=== PATIENT | male | born 1985 | race Caucasian/White ===

== ENCOUNTER 2022-09-06 15:09 | Outpatient (CLI) | payer OTHER, SELFPAY ==
[2022-09-06 18:10] LABS: Chloride* 101 mmol/L (96-114); Potassium* 4.6 mmol/L (3.6-5.1); Sodium* 139 mmol/L (135-149)
[2022-09-06 18:13] LABS: Blood Urea Nitrogen* 13 mg/dL (5-24); Carbon Dioxide* 32 mmol/L (20-32); Cholesterol* 176 mg/dL (90-199); Creatinine* 0.8 mg/dL (0.5-1.5); Estimated Glomerular Filt Rate 118 ml/min
[2022-09-06 18:14] LABS: Calcium* 9.8 mg/dL (8.4-10.6); Glucose* 66 mg/dL (60-115); HDL Cholesterol* 69 mg/dL (>=40); LDL Cholesterol Calculated 96 mg/dL (<100); Triglycerides* 54 mg/dL (40-149)
== END 2022-09-06 15:10 | disposition home or self-care (01) ==
PROVIDERS: PCP Family Medicine; Visit Provider Family Medicine
DX: Z00.00 Encounter for general adult medical examination without abnormal findings (principal); Z13.6 Encounter for screening for cardiovascular disorders
CPT/HCPCS: 80048; 80061

== ENCOUNTER 2023-11-26 08:30 | Outpatient (CLI) | payer OTHER, SELFPAY | END 2023-11-26 08:31 | disposition home or self-care (01) | PROVIDERS: PCP Family Medicine; Referring Provider Family Medicine; Visit Provider Family Medicine | DX: Z00.00 Encounter for general adult medical examination without abnormal findings (principal); Z13.1 Encounter for screening for diabetes mellitus; Z13.6 Encounter for screening for cardiovascular disorders | CPT/HCPCS: 80061; 82947 ==

== ENCOUNTER 2024-05-28 23:49 | Emergency (ER) | payer OTHER, SELFPAY ==
[2024-05-28 23:54] VITALS: BP 124/74; PULSE 85; RESP 16; TEMP 37.5; O2SAT 97
[2024-05-29] VITALS: BP 121/97; PULSE 80; RESP 16; TEMP 37.5; O2SAT 97; BMI 21.8
--- NOTE | 2024-05-29 | ED_ITS ---
HPI - General Adult General Chief complaint: Fever Stated complaint: Fever, headache Time Seen by Provider: 05/28/24 23:55 History of Present Illness HPI narrative: Headache, chills, fever started today. 101.6 at home, 1500 took 200mg ibuprofen and another 200 at 2300. no tylenol. 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 states coworkers had covid a couple weeks ago. 5 days ago working with closely with goats that had rhinorrhea which he thought was probably related to them being in a colder location. Some of them also demonstrated a rash he suspects to be fungal. He was just working with them more closely than usual trying to investigate what was going on. With further conversation it is apparent that his concern is potentially being exposed to kenna influenza. No known contact with kenna influenza specifically. Today began to feel chilled and measured a fever today at 101.6. He is concerned also as his partner is returning to town and he is worried about exposing her to illness. No vomiting or diarrhea. Also has a headache. No rash. He did have some left-sided chest discomfort which is somewhat reproducible per his description. Describes some vigorous motion in his work but primarily with the right side/arm. Related Data Home Medications ?Medication ?Instructions ?Recorded ?Confirmed No Known Home Medications 09/06/22 12/02/23 Allergies Allergy/AdvReac Type Severity Reaction Status Date / Time No Known Drug Allergies Allergy Verified 12/02/23 07:59 Review of Systems Status of ROS: Reports: 6 or more systems reviewed and unremarkable except as noted in History and below [facility] Medical History No significant past medical history Surgical History History of nasal septoplasty ?Z98.890 - Other specified postprocedural states (ICD-10) Family History (Updated 10/08/22 @ 15:57 by Neela Aleman) Father High blood pressure Paternal Grandfather High blood pressure Social History Narrative: , no kids, [employer] and [place], nonsmoker, social ETOH, THC What is your current living situation?: I presently have a place to live Problems where you live: mold In the past 12 months, utilities in danger of being shut off: no In past 12 months, lack of transportation kept you from medical appts, meetings, work, or getting things needed for daily living: no In the past 12 mos, have been you worried that your food would run out before you had money to buy more?: never true In the past 12 mos, the food you bought just didn't last and you didn't have money to buy more?: never true Smoking Status: Never smoker Second hand tobacco smoke exposure: No How often do you have a drink containing alcohol: never AUDIT-C Alcohol total score: 0 Non-prescribed substance use: denies use How often does anyone, including family, friends and others, physically hurt you : never How often does anyone, including family, friends and others, insult or talk down to you: never How often does anyone, including family, friends and others, threaten you with harm: never How often does anyone, including family, friends and others, scream or curse at you: never Little interest or pleasure in doing things: several days Feeling down, depressed, or hopeless: several days Exam Narrative: Exam Narrative: Pleasant. NAD. Breathing easily. Lungs appear to be clear. Oropharynx is moist and without erythema. Neck is supple without lymphadenopathy. He is bearded. Heart in regular rate and rhythm without murmur rub or gallop. Abdomen is flat and soft. Extremities are well perfused without edema. Skin is warm and dry without rash. Is a little sore to palpation in the left pectoralis musculature. Const: Vital Signs, click to edit/add: Vital Signs - 24 hr 05/28/24 23:54 05/29/24 00:00 05/29/24 03:17 Temperature 99.5 F 99.5 F 98.7 F Pulse Rate [Pulse Oximeter] 80 74 Pulse Rate [Right Pulse Oximeter] 85 Respiratory Rate 16 16 16 Blood Pressure [Le ft Arm] 124/74 Blood Pressure [Ri ght Upper Arm] 121/97 H 114/74 Pulse Oximetry 97 97 97 Oxygen Delivery Me thod Room Air Room Air Room Air 05/29/24 03:18 Temperature 98.7 F Pulse Rate [Pulse Oximeter] 74 Pulse Rate [Right Pulse Oximeter] Respiratory Rate 16 Blood Pressure [Le ft Arm] Blood Pressure [Ri ght Upper Arm] 114/74 Pulse Oximetry Oxygen Delivery Me thod Documenting provider has reviewed patient's vital signs: yes Course Vital Signs Vital signs: Initial Vital Signs Temperature 99.5 F 05/28/24 23:54 Temperature Source Temporal Artery Scan 05/28/24 23:54 Pulse Rate 85 05/28/24 23:54 Respiratory Rate 16 05/28/24 23:54 Respiratory Effort Normal, Spontaneous, Non-Labored 05/28/24 23:54 Respiratory Depth Normal 05/28/24 23:54 Respiratory Pattern Normal 05/28/24 23:54 Blood Pressure 124/74 05/28/24 23:54 Blood Pressure Mean 90 05/28/24 23:54 Blood Pressure Position Sitting 05/28/24 23:54 Pulse Oximetry 97 05/28/24 23:54 Oxygen Delivery Method Room Air 05/28/24 23:54 Sepsis Recent Fever Within 48 Hours No 05/28/24 23:54 Sepsis New/Unexplained Change in Mental Status No 05/28/24 23:54 Sepsis Action Taken by Nursing No Action Required 05/28/24 23:54 Vital Signs Temperature 99.5 F 05/28/24 23:54 Pulse Rate 85 05/28/24 23:54 Respiratory Rate 16 05/28/24 23:54 Blood Pressure 124/74 05/28/24 23:54 Pulse Oximetry 97 05/28/24 23:54 Oxygen Delivery Method Room Air 05/28/24 23:54 Temperature 98.7 F 05/29/24 03:18 Pulse Rate 74 05/29/24 03:18 Respiratory Rate 16 05/29/24 03:18 Blood Pressure 114/74 05/29/24 03:18 Pulse Oximetry 97 05/29/24 03:17 Oxygen Delivery Method Room Air 05/29/24 03:17 Medical Decision Making MDM Narrative Medical decision making narrative: I would suspect nonspecific viral illness which has been circulating in the community. Would screen otherwise for COVID which has certainly been present, and influenza. Otherwise does not appear to be unwell. Did briefly describes some chest discomfort. Afebrile at this time and does not need any medications for nausea. Given concerns though I do discuss further with [place] [facility] to evaluate for potential outbreaks. Recommending further evaluation of the goats by a bottle machine operator, which he was planning on doing, and after discussing with our lab and [facility], am reminded that our influenza testing here, screening for influenza a would also screen for potential H 5 N1 per concern. COVID influenza thankfully are negative. Would therefore not appear to have H 5 N 1 either. Would continue to monitor for fever and progression of illness. Symptomatic treatment. See patient discharge plan for further discussion Medical Records Medical records reviewed: Yes I reviewed the patient's medical records Lab Data Lab results reviewed: Yes I reviewed the patient's lab results Labs: Lab Results 05/28/24 Range/Units 23:51 SARS-CoV-2 (PCR) Negative SARS-CoV-2 (Negative) Influenza Type A (PCR) Negative PCR FLU A (Negative) Influenza Type B (PCR) Negative PCR FLU B (Negative) Discharge Plan Discharge Clinical Impression: Acute febrile illness Patient Disposition: Home, Self-Care Condition: Stable Additional Instructions: I do appreciate your concern. And I would consider yourself contagious, per your concern, until 24 hours no fever. Focus on hydration. Can take up to 800 mg of ibuprofen up to 1000 mg of acetaminophen per dose. Be seen for 5 days of fever, marked increase in headache, increasing and persistent chest pain or shortness of breath. Please reach out as planned to your bottle machine operator. Prescriptions: No Action No Known Home Medications Follow Up/Referrals: Uli Guerra MD [Staff Physician] - Stand Alone Forms: [employer] Info Instructions
[2024-05-29 00:47] LABS: PCR FLU A Negative PCR FLU A (Negative); PCR FLU B Negative PCR FLU B (Negative); SARS PCR* Negative SARS-CoV-2 (Negative)
[2024-05-29 03:17] VITALS: BP 114/74; PULSE 74; RESP 16; TEMP 37.1; O2SAT 97
[2024-05-29 03:18] VITALS: BP 114/74; PULSE 74; RESP 16; TEMP 37.1
== END 2024-05-29 03:18 | disposition home or self-care (01) ==
PROVIDERS: Emergency Provider Family Medicine; PCP Pediatrics
DX: R50.9 Fever, unspecified (principal)
CPT/HCPCS: 87631; 99283; 99284